=== PATIENT | female | born 1965 | race Hispanic/Latino ===

== ENCOUNTER 2018-05-12 18:32 | Emergency (ER) | payer MEDICAID | END 2018-05-12 19:21 | disposition home or self-care (01) | LOC: EDH 18:32 | DX: N76.4 Abscess of vulva (principal); E11.9 Type 2 diabetes mellitus without complications; I10 Essential (primary) hypertension; I25.10 Atherosclerotic heart disease of native coronary artery without angina pectoris; Z86.73 Personal history of transient ischemic attack (TIA), and cerebral infarction without residual deficits ==

== ENCOUNTER → 2018-07-04 | Outpatient (CLI) | payer MEDICAID ==
[~2018-07-04] MED LIST: REGADENOSON 0.4 MG/5 ML PF SYG IVP SCH
== END | disposition home or self-care (01) ==
LOC: SHCH 09:06
PROVIDERS: ATTEND Internal Medicine Cardiovascular Disease
DX: R07.9 Chest pain, unspecified (principal)
CPT/HCPCS: 78452; 93017; 96374; A9500 ×2; J2785

== ENCOUNTER 2018-09-16 05:39 | Day surgery (SDC) | payer MEDICAID ==
[2018-09-12 11:20] VITALS: BP 205/81
[2018-09-12 11:38] LABS: BASOPHILS % (AUTO) 0.6 % (0.0-5.0); HEMATOCRIT 45.9 % (36-48); LYMPHOCYTES % (AUTO) 26.7 % (21.0-51.0); MEAN CORPUSCULAR HEMOGLOBIN 30.3 pg (27.0-33.0); MEAN CORPUSCULAR HGB CONC 34.1 g/dL (32.0-36.0); MEAN CORPUSCULAR VOLUME 88.7 fL (79-99); MONOCYTES % (AUTO) 8.5 % (3.0-13.0); NEUTROPHILS % (AUTO) 62.2 % (40.0-77.0); NUCLEATED RED BLOOD CELLS 0.1 % (0.0-0.19); PLATELET COUNT (AUTO) 151 K/uL (130-400); RED BLOOD CELL COUNT(AUTO) 5.17 MIL/uL (4.00-5.50); RED CELL DISTRIBUTION WIDTH 13.5 % (11.0-15.5); WHITE BLOOD COUNT (AUTO) 8.4 K/uL (4.8-10.8)
[2018-09-12 11:47] LABS: POTASSIUM 4.6 mmol/L (3.5-5.1)
[2018-09-12 11:49] LABS: INR 1.07 (0.85-1.15); PARTIAL THROMBOPLASTIN TIME 28.5 SEC (26.3-35.5); PROTHROMBIN TIME 11.2 SEC (9.6-11.6)
--- NOTE | 2018-09-12 11:53 | NUR ---
RESPIRATORY HAS SLEEP APNEA AND NOT USING CPAP MACHINE FOR 6 MONTHS DUE TO FLOODING IN HER HOUSE. HAS NOT BEEN ABLE TO GET ANOTHER ONE.
[2018-09-12 12:04] LABS: APPEARANCE,URINE Clear (CLEAR); BILIRUBIN,URINE Negative (NEGATIVE); COLOR,URINE Yellow (YELLOW); GLUCOSE, URINE (UA) Negative (NEGATIVE); KETONES,URINE Negative (NEGATIVE); LEUKOCYTE ESTERASE ,URINE Trace (NEGATIVE); NITRATE,URINE Negative (NEGATIVE); OCCULT BLOOD,URINE Negative (NEGATIVE); PROTEIN,URINE 300 (NEGATIVE); UROBILINOGEN,URINE 0.2 mg/dL (0.2-1.0)
[2018-09-12 12:16] LABS: BACTERIA,URINE Rare /HPF (None Seen); RBC,URINE 0-1 /HPF (0-1)
[2018-09-12 12:17] LABS: SQUAMOUS EPITHELIAL CELL,UR Few /HPF (0-2); YEAST,URINE BUDDING Few /HPF (None Seen)
--- NOTE | 2018-09-15 10:50 | NUR ---
ABNORMAL LABS NOTIFIED VANESSA NAVARRO OF PT'S UA RESULT. NEGATIVE NITRATES, TRACE ULEUKEST, 2-5 UWBC. NO FURTHER ORDERS GIVEN.
[2018-09-16] VITALS (17 sets, daily range): BP systolic 98–162; BP diastolic 47–67
[~2018-09-16] VITALS: Ht 154.9 cm; Wt 129.5 kg
[~2018-09-16 05:39] MED LIST changes: +AMIT25TA9 PO; +AMLODIPINE PO; +ASPI-555 PO; +CARV25TA PO; +CHOL500045 PO; +CLOP75TA14 PO; +DOXA4TAB3 PO; +ESOM40CA54 PO; +EZET10TA26 PO; +FURO20TA4 PO; +GLIP10TA9 PO; +INSU10VI3 SQ; +ISOS20TA7 PO; +LEVO112T7 PO; +LOSA100T58 PO; -REGADENOSON 0.4 MG/5 ML PF SYG IVP SCH; +ROSU40 PO; +SODIUM CHLORIDE 0.9% 500ML 500 ML IV SCH; +VALS320T16 PO
[2018-09-16] MEDS ORDERED: SODIUM CHLORIDE 0.9% 1000ML 1,000 ML IV ONE (07:01)
[2018-09-16] MEDS ORDERED: RANI150T7 PO (07:11)
[2018-09-16] MEDS ORDERED: INSU3INS5 SQ (07:11)
--- NOTE | 2018-09-16 09:00 | NUR ---
IV STARTED WITH 22 GAUGE TO LT HAND ,SITE HEALTHY ,AFTER 5 ATTEMPTS ,STARTED BY ADNISH SULTANA
--- NOTE | 2018-09-16 11:04 | NUR ---
ASSISTED TO BR ,VOIDS AND BACK TO BED,STATES ALITTLE DIZZY,[id number],,BUT STATES WENT AWAY RIGHT AWAY ,INSTRUCTED TO USE CALL MCCARTY VERBALIZES UNDERSTANDING
[2018-09-16] MEDS ORDERED: SODIUM BICARB 50MEQ 50ML VIAL ONE (11:15)
[2018-09-16] MEDS ORDERED: IOHEXOL 350 MG/ML 100ML INFUS..BTL IV ONE ×2 (11:16→12:06)
[2018-09-16] MEDS ORDERED: HEPARIN SODIUM 1000UNIT/ML 10ML VIAL ONE (11:16)
[2018-09-16] MEDS ORDERED: IOHEXOL-350 50ML VIAL IV ONE (11:16)
[2018-09-16] MEDS ORDERED: NITROGLYCERIN 5 MG/ML 10 ML VIAL IV ONE (11:16)
[2018-09-16] MEDS ORDERED: LIDOCAINE HCL 2% 20ML ONE (11:16)
--- NOTE | 2018-09-16 11:25 | NUR ---
TO ORGANIZATIONAL RESEARCH CONSULTANT
[2018-09-16] MEDS ORDERED: MEPERIDINE-PF 25 MG/ML SYG ONE ×2 (11:51→12:08)
[2018-09-16] MEDS ORDERED: MIDAZOLAM HCL 1 MG/ML 2ML VIAL ONE ×2 (11:51→12:08)
[2018-09-16] MEDS ORDERED: SODIUM CHLORIDE 0.9% 1000ML 1,000 ML IV SCH (12:18)
[2018-09-16] MEDS ORDERED: ACETAMINOPHEN-CODEINE 300/30MG TAB PO PRN (12:30)
[2018-09-16] MEDS ORDERED: GLUCAGON 1MG KIT 1 MG ML IM PRN (12:30)
[2018-09-16] MEDS ORDERED: DEXTROSE 50%-WATER 50 ML DISP.SYRIN IV PRN (12:30)
--- NOTE | 2018-09-16 12:35 | NUR ---
RECEIVED AWAKE , NO COMPLAINS OF DISCOMFORT ,DRESSING TO RT GROIN DRY ,NO BLEEDING NO HEMATOMA,CALL MCCARTY IN REACH,WILL CONTINUE TO MONITOR,
--- NOTE | 2018-09-16 13:47 | NUR ---
DAVIAN RN IN TALKING TO PT
--- NOTE | 2018-09-16 14:34 | NUR ---
REPORT TO HEIDI SULTANA
[2018-09-16] MEDS ORDERED: INSULIN HUMULIN R 100 UNIT/ML 3ML SQ SCH (16:30)
== END 2018-09-16 18:40 | disposition home or self-care (01) ==
LOC: DAH 05:39
PROVIDERS: ATTEND Internal Medicine Cardiovascular Disease
DX: I25.118 Atherosclerotic heart disease of native coronary artery with other forms of angina pectoris (principal); Z95.5 Presence of coronary angioplasty implant and graft; Z86.73 Personal history of transient ischemic attack (TIA), and cerebral infarction without residual deficits; I65.21 Occlusion and stenosis of right carotid artery; I10 Essential (primary) hypertension; E78.5 Hyperlipidemia, unspecified; E11.9 Type 2 diabetes mellitus without complications; E66.01 Morbid (severe) obesity due to excess calories; F41.9 Anxiety disorder, unspecified; F32.9 Major depressive disorder, single episode, unspecified; Z79.899 Other long term (current) drug therapy; Z98.890 Other specified postprocedural states; Z68.43 Body mass index [BMI] 50.0-59.9, adult
CPT/HCPCS: 36415; 71045; 80048; 81001; 82948 ×2; 85025; 85610; 85730; 93005; 93458; A4606; C1760; C1894; J1644; J2175 ×2; J2250 ×2; J3490 ×3; J7030; Q9965; Q9967 ×2; 99156; 99157

== ENCOUNTER → 2021-02-23 | Outpatient (CLI) | payer MEDICAID ==
[~2021-02-23] MED LIST changes: -AMLODIPINE PO; -ASPI-555 PO; +ASPI-891 PO; -CARV25TA PO; +CARV3.1262 PO; -CLOP75TA14 PO; -ESOM40CA54 PO; -EZET10TA26 PO; +EZET10TA48 PO; -FURO20TA4 PO; +FURO20TA6 PO; -INSU10VI3 SQ; +INSU3INS5 SQ; -ISOS20TA7 PO; -LOSA100T58 PO; +POTA20TA12 PO; +RANI150T7 PO; -SODIUM CHLORIDE 0.9% 500ML 500 ML IV SCH; +TRAM50TA4 PO; -VALS320T16 PO
== END | disposition home or self-care (01) ==
LOC: SHCH 09:26
PROVIDERS: ATTEND Internal Medicine Cardiovascular Disease
DX: I08.3 Combined rheumatic disorders of mitral, aortic and tricuspid valves (principal)
CPT/HCPCS: 93306; 93356

== ENCOUNTER → 2021-03-22 | Outpatient (CLI) | payer MEDICAID | END | disposition home or self-care (01) | LOC: SHCH 08:58 | PROVIDERS: ATTEND Internal Medicine Cardiovascular Disease | DX: R60.9 Edema, unspecified (principal) | CPT/HCPCS: 93970 ==